=== PATIENT | male | born 1945 | race Caucasian/White ===

== ENCOUNTER 2023-12-17 02:09 | Emergency (ER) | payer MEDICARE, SELFPAY ==
[2023-12-17 02:09] VITALS: BP 139/84; PULSE 81; RESP 16; TEMP 36.9; O2SAT 97; BMI 25.8
--- OUTSIDE RECORDS SUMMARY | 2023-12-17 03:55 | XMS_ITS | Clinical Summary ---
Author Organization [facility] Address [address] [place] [address] Care Team Providers Care Loom Winder Tender Name Role Phone Cezar Mejia MD Primary Care Provider Unavai lable Allergies Active Allergy Reactions Criticality Noted Date Comments Lisinopril Cough 11/09/2018 Statins Other (see comments) 03/07/2019 myalgias myalgias Medications Medication Sig Dispensed Refills Start Date End Date Status Telmisartan (MICARDIS PO) telmisartan 60mg Active rosuvastatin (CRESTOR) 10 MG tablet Take 1 tablet (10 mg) by mouth 1 time per day 11/22/2021 Active omega-3 (FISH OIL) 1000 MG capsule Take 3,000 mg by mouth Active montelukast (SINGULAIR) 10 MG tablet 11/17/2021 Active Melatonin tablet Take 10 mg by mouth Active Ibuprofen 200 MG capsule ibuprofen 800 Active esomeprazole (NexIUM) [address] capsule daily 08/06/2021 Active cyclobenzaprine (FLEXERIL) 10 MG tablet Take 10 mg by mouth 3 times daily as needed 08/06/2021 Active cholecalciferol (VITAMIN D-3) 25 MCG (1000 UT) tablet Take 4,000 Units by mouth Active aspirin 81 MG EC tablet Take by mouth Active ascorbic acid (VITAMIN C) 500 MG tablet Take 2,000 mg by mouth Active Misc Natural Products (GLUCOSAMINE CHOND CMP ADVANCED PO) Take by mouth Activ e Active Problems Problem Noted Date Diagnosed Date Hypertension 10/26/2015 Overview: Goal less than 125/85 given family history and inability to tolerate lipid- lowering medications. Last Assessment & Plan: Blood pressure in good control. No change in medications. Call if running higher Goal less than 125/85 given family history and inability to tolerate lipid-lowering medications. Immunizations Name Administration Dates Next Due COVID-19, mRNA, LNP-S, PF, 30mcg/0.3mL dose Pfiz er 06/21/2021 Flu Vaccine High Dose 65yrs and Older IM 021 Influenza, Split Virus, Trivalent, Preservative 2010 Influenza, Trivalent, PF 02/11/2011 Influenza, Unspecified 11/04/2019,01/22/2019 Pneumococcal Conjugate 13-Valent 06/05/2017 Pneumococcal Polysaccharide 07/18/2018 TD Preservative Free 07/06/1998 Tdap 10/03/2018,08/04/2008 Zoster 06/28/2016 Zoster Recombinant 05/11/2019,01/22/2019 Social History Tobacco Use Types Packs/Day Years Used Date Smoking Tobacco: Never Smokeless Tobacco: Never Alcohol Use Standard Drinks/Week Comments Not Currently 0 (1 standard drink = 0.6 oz pur e alcohol) PHQ-2 Answer Date Recorded PHQ-9 Total Score 0 12/22/2021 Sex and Gender Information Value Date Recorded Sex Assigned at Not on file Gender Identity Not on file Sexual Orientation Not on file Last Filed Vital Signs Vital Sign Reading Time Taken Comments Blood Pressure 110/74 12/22/2021 7:21 AM CDT Pulse 83 12/22/2021 7:21 AM CDT Temperature 35.8 ??C (96.4 ??F) 12/22/2021 7:21 AM CD T Respiratory Rate 18 12/22/2021 7:21 AM CDT Oxygen Saturation 98% 12/22/2021 7:21 AM CDT Inhaled Oxygen Concentration - - Weight 84.1 kg (185 lb 8 oz) 12/22/2021 7:21 AM CDT Height 177.9 cm (5' 10.04) 12/22/2021 7:21 AM C DT Body Mass Index 26.59 12/22/2021 7:21 AM CDT Plan of Treatment Health Maintenance Due Date Last Done Comments Fall Risk Performed 1965 COVID-19 Vaccine ( season) 2023 06/21/2021, 11/30/2020, 05/14/2020, Additional history exists Influenza Vaccine (#1) 2023 , 11/04/2019, 01/22/2019, Additional history exists DTaP,Tdap,and Td Vaccines (3 - Td or Tdap) 10/03/2028 10/03/2018, 08/04/2008, 07/06/1998 Pneumococcal Vaccine: 65+ Years Completed 07/18/2018, 06/05/2017 Zoster Vaccines Completed 05/11/2019, 01/04, 06/28/2016 Colorectal Cancer Screening Discontinued iFOBT Discontinued 12/22/2021 CT Colonography Discontinued Colonoscopy Discontinued FIT-DNA Discontinued HPV Vaccines Aged Out No longer eligi ble based on patient's age to complete this topic Sigmoidoscopy Discontinued Procedures Procedure Name Priority Date/Time Associated Diagnosis Comments IMMUNOCHEMICAL FECAL OCCULT BLOOD (IFOBT)- OUPATIENT Routine 12/22/2021 8:25 AM CDT Diarrhea of presumed infectious origin from Last 3 Months or Most Recently Relevant to Health Maintenance Results * (ABNORMAL) Immunochemical Fecal Occult Blood (iFOBT)- outpatient (12/22/2021 8:25 AM CDT) Immunochemical Fecal Occult Blood POSITIVE( A) Negative 12/22/2021 12:52 PM CDT [facility] Stool 12/22/2021 8:25 AM CDT 12/22/2021 12:46 PM CDT Cheyenne Napoles MD LAB BODY FLUIDS AND STOOLS ORDERABLES [facility] [address] [place] [address] from Last 3 Months or Most Recently Relevant to Health Maintenance Care Teams Loom Winder Tender Relationship Specialty Start Date End Date Cezar Meija MD [address] [facility] [address] [id number] PCP - General Family Medicine 08/08/22
--- OUTSIDE RECORDS SUMMARY | 2023-12-17 03:56 | XMS_ITS | Continuity of Care Document ---
Author Organization [facility] Address [address] [address] [place] [address] Phone Care Team Providers Care Industrial Cleaner Name Role Phone Link Roger GOEL Unavailable Unavailable Advance Directives Directive Yes / No Effective Date File Name No Information Encounters Encounter Description Practice Location Reason(s) For Visit Diagnoses Date Provider Providers Copied on Encounter [facility], [address] [address], [place], [place], [id number], [place] tel:[phone] [facility] No Information May- 6 Link MD Duran. [address] [facility], [facility] [address], [place], [id number] , [place]. tel:[phone] Referring Provider: Abiodun Obrien MD J, [address] [place], [address]. tel:[phone] Family History Family Member Type Diagnosis Age At Onset No Information Payers Payer name Insurance type Covered green party ID Authoriza tion(s) No Information Social History Type Description Quantity Date Captured Comments Sex Male Smoking Status No Information Chief Complaint And Reason For Visit No Information Reason For Referral Reason For Referral No Information History Of Present Illness Encounter Date Complaint History Of Prese nt Illness No Information Functional Status Date Functional Assessmen t No Information Instructions Date Instruction Additional Infor mation No Information Assessments Type Assessment Date No Information Patient Care Teams Name Effective Dates (start - stop) Status Members No Information
--- OUTSIDE RECORDS SUMMARY | 2023-12-17 03:56 | XMS_ITS | Clinical Summary ---
Author Organization [facility] Address [place], [place] [address] Care Team Providers Care Airplane Flight Attendant Supervisor Name Role Phone Axel Maldonado MD Unavailable [phone] Eunice Carney MD Primary Care Prov ider Allergies No known active allergies Medications Medication Sig Dispensed Refills Start Date End Date Status glucosamine-chondro itin, 500-400 mg, (COSAMIN DS 500/400) 500-400 mg CapIndications:Lily al physical exam 0 08/14/2009 Active ranitidine (ZANTAC) 150 mg tabletIndications:E sophageal reflux 1 tablet. prn 0 02/11/2011 Activ e diphenhydrAMINE-kandi taminophen 25-500 mg (TYLENOL PM EXTRA STRENGTH) 25-500 mg tablet Take 3 tablets by mouth at bedtime if needed. Max acetaminophen dose: 4000mg in 24 hrs. 0 12/29/2011 Active aspirin enteric coated 81 mg tablet Take 1 tablet by mouth once daily with a meal. 0 11/12/2012 Active ibuprofen (ADVIL; MOTRIN) 200 mg tablet Take 3-4 tablets by mouth every 6 hours. 0 11/12/2012 Active ascorbic acid (VITAMIN C) 1,000 mg tablet Take 2 tablets by mouth once daily. 0 11/12/2012 Active omega-3 fatty acids-vitamin E (FISH OIL) 1,000 mg capIndications:Lily al physical exam Take by mouth. 4000 capsule 0 11/12/2012 Active cholecalciferol (VITAMIN D3) 2,000 unit capsule Take 2 capsules by mouth once daily. 0 11/19/2012 Active fluticasone (50 mcg per actuation) nasal solution (FLONASE)Indication s:Chronic rhinitis Inhale 2 Sprays into both nostrils once daily. . 3 Bottle 0 02/12/2014 Active atenolol (TENORMIN) 25 mg tabletIndications:H TN (hypertension) Take 1 tablet by mouth once daily. 90 tablet 3 06/04/2015 Active atorvastatin (LIPITOR) 20 mg tabletIndications:H yperlipidemia, unspecified hyperlipidemia type Take 1 tablet by mouth at bedtime. 90 tablet 3 06/04/2015 Active tadalafil (CIALIS) 20 mg tabletIndications:E rectile dysfunction, unspecified erectile dysfunction type Take 1 tablet by mouth once daily if needed for Erectile Dysfunction. Take 30 minutes before sexual activity. 6 tablet 11 06/04/2015 Active Active Problems Problem Noted Date Diagnosed Date Elevated fasting glucose 03/27/2012 Syncope and collapse, 201201/10/2012 Assessment & Plan (11/12/2012 10:06 AM CDT): No issues since stopped Niacin Vitamin D deficiency 03/09/2011 GERD (gastroesophageal reflux disease) 0 Chronic rhinitis 03/23/2007 hyperlipidemia 11/18/2005 Colon polyp 11/18/2005 Overview (03/23/2007): Colonoscopy done in 2004 BIOPSY: Hyperplastic polyps. Resolved Problems Problem Noted Date Diagnosed Date Resolved Date Rhinitis medicamentosa 08/05/200808/14 Depressive disorder, not elsewhere classified 09/29/19 04 03/04/2011 Anxiety state, unspecified 09/29/2003 1 Immunizations Name Administration Dates Next Due Influenza, IIV3 (Age >=3 years) 02/11/2011 Td (Age >=7 Years) 07/06/1998 Tdap 08/04/2008 Family History Medical History Relation Name Comments Diabetes Brother 2 Other Brother 3 heart murmur ag e 62 Good Health Daughter 2 Diabetes Father age 87 Good Health Father Heart Disease Father 90 [place] 95 Arthritis Mother age 80 Heart Disease Mother Hypertension Mother Genetic Other no CA, DM~mothe r CAD, HTN, OA~brother uncertain type arrhythmia requiring ablation Unknown Paternal Grandfather Good Health Sister 2 Good Health Son 3 Good Health Son 4 Relation Name Status Comments Brother 1 Alive Brother 2 Brother 3 Daughter 1 Alive Daughter 2 Father [place] Maternal Grandfather Maternal Grandmother Mother Other Paternal Grandfather Paternal Grandmother Sister 1 Alive Sister 2 Son 1 Alive Son 2 Alive Son 3 Son 4 Social History Tobacco Use Types Packs/Day Years Used Date Smoking Tobacco: Never Smokeless Tobacco: Never Tobacco Cessation:Counseling Given: Yes Alcohol Use Standard Drinks/Week Comments Yes 0 (1 standard drink = 0.6 oz pur e alcohol) Occasional 1 per week Sex and Gender Information Value Date Recorded Sex Assigned at Not on file Gender Identity Not on file Sexual Orientation Not on file Obstetrics History Last Filed Vital Signs Vital Sign Reading Time Taken Comments Blood Pressure 138/88 06/04/2015 12:31 PM CDT Pulse 76 06/04/2015 12:31 PM CDT Temperature 36.8 ??C (98.2 ??F) 07/14/2014 4:28 PM CD T Respiratory Rate 14 04/22/2013 1:45 PM SHELLFISH HARVESTER Oxygen Saturation 96% 10/03/2014 2:09 PM CDT Inhaled Oxygen Concentration - - Weight 90.7 kg (200 lb) 06/04/2015 12:31 PM CDT Height 180.3 cm (5' 10.98) 06/04/2015 12:31 PM CDT Body Mass Index 27.91 06/04/2015 12:31 PM CDT Plan of Treatment Health Maintenance Due Date Last Done Comments Hepatitis C screening for age 18-79 1963 Zoster (shingles) series for age 50+ (1 of 2) 1997 Pneumococcal series for age 65+ (1 of 1 - PCV) 01/04/2012 BMI (ht and wt on same day) for age 18+ 06/03/2016 0 06/04/2015 Depression screening for age 12+ 06/03/2016 06/04/19 16 Tetanus booster 08/04/2018 08/04/2008, 07/06/1998 RSV vaccine for adults or pr egnancy (1 - 1-dose 75+ series) 2022 COVID-19 vaccine series (1 - 2023- season) 2023 Influenza for age 65+ 11/05/2023 02/11/2011 Tdap Completed 08/04/2008 Care Teams Airplane Flight Attendant Supervisor Relationship Specialty Start Date End Date Eunice Carney MD PCP - General Family Practice 10/06/12 Axel Maldonado MD Cardiology Cardiovascular Disease 12/29/11
--- OUTSIDE RECORDS SUMMARY | 2023-12-17 03:56 | XMS_ITS | Continuity of Care Document ---
Author Organization [facility] Address [address] [address] [place] [address] Phone Care Team Providers Care Threading Machine Feeder Automatic Name Role Phone Link Roger GOEL Unavailable Unavailable Advance Directives Directive Yes / No Effective Date File Name No Information Encounters Encounter Description Practice Location Reason(s) For Visit Diagnoses Date Provider Providers Copied on Encounter [facility], [address] [address], [place], [place], [id number], [place] tel:[phone] [facility] No Information May- 6 Link MD Duran. [address] [facility], [facility] [address], [place], [id number] , [place]. tel:[phone] Referring Provider: Abiodun Obrien MD J, [address] [place], [address]. tel:[phone] Family History Family Member Type Diagnosis Age At Onset No Information Payers Payer name Insurance type Covered republican ID Authoriza tion(s) No Information Social History [...]
--- NOTE | 2023-12-17 04:19 | ED_ITS ---
HPI - General Adult General Chief complaint: Skin/Abscess/Foreign Body Stated complaint: Tick Bite History of Present Illness HPI narrative: Downtime documentation on Matt Carmona: Adult male comes into the emergency department because of concern with a tick bite.? Unsure when it attached to him, noticed tonight and came directly to the emergency department, did not attempt to remove.? Scant amount of bleeding around the area, left armpit.? No fever, no other tick noted.? Feeling otherwise well.? Reports that his immunizations are up-to-date, denies acute treatment for other conditions currently.? ROS is notable for no other generalized, skin or musculoskeletal changes.? On exam temp is 98.5?, pulse is 81 O2 sats are 97% on room air respiratory rate 16 blood pressure 139/84 general he is awake alert, pleasant and interactive not distressed mood behavior and affect are appropriate eyes with normal conjugate gaze and good eye contact.? Breathing is unlabored, speaks in full sentences.? Skin is examined in the area in question.? There is a small wood tick on the left in her triceps area near the axilla.? This has electroneurodiagnostic technician brown colored legs rather than a typical darker leg Ed deer tick.? It is small like a name.? The body is maza and is absolutely not engorged.? Rounded ra ther than more tear drop shaped is consistent with a wood tick.? Normal appearance of shoulder, elbow, wrist and hand on that side, moves them freely. Tick is grasped between gloved fingers and easily removed.? Scant amount of bleeding on arm noted, controlled.? Tick is closely examined with the features described above, a does appear consistent with a wood tick but also secondarily is certainly not engorged. Assessment non engorged wood tick, status post removal.? Plan counseled patient that this does 1st appear consistent with a wood tick.? Antibiotic prophylaxis is not indicated, 2nd it does not meet criteria as it is not engorged for any type of treatment.? Recommended application of just a Band-Aid and watchful waiting.? If he starts to experience headache, body aches, fevers, unexplained abdominal symptoms, he should be re-evaluated.? He verbalizes understanding and agreement and has no other acute concerns today. Related Data Home Medications ?Medication ?Instructions ?Recorded ?Confirmed No Known Home Medications 12/17/23 12/17/23 Allergies Allergy/AdvReac Type Severity Reaction Status Date / Time No Known Drug Allergies Allergy Verified 12/17/23 04:12 [facility] Social History Smoking Status: Never smoker How often do you have a drink containing alcohol: never AUDIT-C Alcohol total score: 0 Non-prescribed substance use: denies use Exam Const: Vital Signs, click to edit/add: Vital Signs - 24 hr 12/17/23 02:09 Temperature 98.5 F Pulse Rate [Pulse Oximeter] 81 Respiratory Rate 16 Blood Pressure [Ri ght Upper Arm] 139/84 Pulse Oximetry 97 Oxygen Delivery Me thod Room Air Course Vital Signs Vital signs: Initial Vital Signs Temperature 98.5 F 12/17/23 02:09 Temperature Source Temporal Artery Scan 12/17/23 02:09 Pulse Rate 81 12/17/23 02:09 Respiratory Rate 16 12/17/23 02:09 Blood Pressure 139/84 12/17/23 02:09 Blood Pressure Mean 102 12/17/23 02:09 Blood Pressure Position Sitting 12/17/23 02:09 Pulse Oximetry 97 12/17/23 02:09 Oxygen Delivery Method Room Air 12/17/23 02:09 Vital Signs Temperature 98.5 F 12/17/23 02:09 Pulse Rate 81 12/17/23 02:09 Respiratory Rate 16 12/17/23 02:09 Blood Pressure 139/84 12/17/23 02:09 Pulse Oximetry 97 12/17/23 02:09 Oxygen Delivery Method Room Air 12/17/23 02:09 Temperature 98.5 F 12/17/23 02:09 Pulse Rate 81 12/17/23 02:09 Respiratory Rate 16 12/17/23 02:09 Blood Pressure 139/84 12/17/23 02:09 Pulse Oximetry 97 12/17/23 02:09 Oxygen Delivery Method Room Air 12/17/23 02:09 Discharge Plan Discharge Clinical Impression: Tick bite Patient Disposition: Home, Self-Care Additional Instructions: Discharge instructions on Matt Carmona: Unfortunately, we do have to do a computer system update once monthly.? This is why your discharge instructions look different than our typical letter head.? I do think there is value in giving written instructions, hence this format.? The tick was easily removed and is consistent with a wood tick, not a deer tick.? This is great news.? It is a young wood tick and they do not have the ability to transmit Lyme disease.? They can carry other illness these but there is no treatment or testing recommended unless the tick is engorged.? This particular tick is not engorged.? This means that it has likely not been on your skin enough time to allow for infection transmission.? This is another layer of evidence that we do not need additional testing or treatment.? There is likely going to be some bruising and or discoloration for a couple of days.? In the future, it is safe for you to remove the tick.? Try to save it in some clear sc otch tape so it can be re-examined if you have concerns.? Even if it is an engorged deer tick, you do have 48 hours to start antibiotics before any potential ill harm.? Those types of visits can be addressed in an urgent care or primary care setting.? It is okay to use Tylenol and/or ibuprofen for mild discomfort.? If you have body aches, headaches, high fevers in the coming days, you should be re-evaluated in a primary care clinic. Prescriptions: No Action No Known Home Medications Follow Up/Referrals: Provider,Not a Local [Primary Care Provider] - Stand Alone Forms: [employer] Info Instructions
== END 2023-12-17 02:30 | disposition home or self-care (01) ==
PROVIDERS: Emergency Provider Family Medicine
DX: T63.481A Toxic effect of venom of other arthropod, accidental (unintentional), initial encounter (principal)
CPT/HCPCS: 99282